=== PATIENT | male | born 1995 | race Caucasian/White ===

== ENCOUNTER 2017-03-28 17:09 | Emergency (ER) | payer OTHER, BC ==
[~2017-03-28] VITALS: Ht 177.8 cm; Wt 99.8 kg
[~2017-03-28 17:09] MED LIST: MELATONIN1 MG PO
[2017-03-28] MEDS ORDERED: TRAMADOL HCL50 MG PO (21:19)
== END 2017-03-28 21:20 | disposition home or self-care (01) ==
LOC: ED 17:09
DX: S39.012A Strain of muscle, fascia and tendon of lower back, initial encounter (principal); S29.012A Strain of muscle and tendon of back wall of thorax, initial encounter; S46.911A Strain of unspecified muscle, fascia and tendon at shoulder and upper arm level, right arm, initial encounter; S20.211A Contusion of right front wall of thorax, initial encounter; Z88.0 Allergy status to penicillin; Z88.5 Allergy status to narcotic agent; V48.5XXA Car driver injured in noncollision transport accident in traffic accident, initial encounter; W22.11XA Striking against or struck by driver side automobile airbag, initial encounter
CPT/HCPCS: 71020; 72070; 72100; 73030; 99283

== ENCOUNTER 2021-03-25 05:23 | Emergency (ER) | payer OTHER ==
[~2021-03-25] VITALS: Ht 177.8 cm; Wt 114.3 kg
[~2021-03-25 05:23] MED LIST changes: +TRAMADOL HCL50 MG PO
== END 2021-03-25 06:15 | disposition home or self-care (01) ==
LOC: ED 05:23
DX: K04.7 Periapical abscess without sinus (principal); Z88.0 Allergy status to penicillin; Z88.5 Allergy status to narcotic agent
CPT/HCPCS: 99282; A9270